=== PATIENT | male | born 1955 | race Caucasian/White ===

== ENCOUNTER 2023-06-21 11:46 | Observation (INO) | payer MEDICARE, SELFPAY ==
[2023-06-21] VITALS (10 sets, daily range): BP systolic 91–176; BP diastolic 75–95; PULSE 59–72; RESP 15–21; TEMP 36.4–36.8; O2SAT 94–95
--- NOTE | 2023-06-21 12:06 | ED_ITS ---
HPI - Animal Bite General: Chief Complaint: Animal Bite Stated Complaint: copperhead bite Time Seen by Provider: 06/21/23 11:47 Source: patient Mode of arrival: ambulatory History of Present Illness: 68-year-old male brought in by EMS for copperhead bite to his l right index finger approximately 2 hours prior to arrival. He has localized swelling. No difficulty breathing no lightheadedness dizziness rapid heart rate or shortness of breath. He is on Coumadin for remote history of PE. Bitten a single time. He does have localized swelling extending from the site of the envenomation in the right index finger to the distal forearm. They did euthanize his neck at the site and confirmed it was a copperhead. MD complaint: animal bite Animal: snake Mechanism: bite Associated symptoms: Deny bleeding, chills, cough, diaphoresis, erythema, fever(s), headache(s), numbness, rash, short of breath, syncope, weakness or wound drainage Review of Systems Const: Denies: fever(s), chills, fatigue, malaise or diaphoresis ENMT: Denies: throat pain, ear or mastoid pain, nasal discharge or nasal congestion Card: Denies: syncope Resp: Denies: dyspnea, productive cough or non-productive cough GI: Denies: abdominal pain, nausea, vomiting, hematemesis, coffee ground emesis, diarrhea, constipation, bloating, hematochezia or melena : Denies: flank pain, dysuria, urinary frequency or urinary urgency Skin/Breast: Denies: rash or pruritus Neuro: Denies: headache(s) PFS ED PFSH: Medical History (Updated 06/21/23 @ 12:30 by Boom Hall DO) Pulmonary embolism Physical Exam Const: GENERAL APPEARANCE: cooperative and comfortable ORIENTATION/CONSCIOUSNESS: Yes awake, Yes oriented to person, Yes oriented to place and Yes oriented to time HENMT: COMMON NORMALS: normocephalic, atraumatic and hearing grossly normal bilaterally HEAD & SCALP: normocephalic and atraumatic Resp: COMMON NORMALS: normal respiratory effort, No retractions, No use of accessory muscles and clear to auscultation bilaterally AUSCULTATION: clear to auscultation bilaterally Cardio: COMMON NORMALS: regular rate, regular rhythm and No murmurs present (Cardio) RATE: regular rate RHYTHM: regular rhythm GI: COMMON NORMALS: Soft to palpation and No hepatosplenomegaly present AUSCULTATION: Yes normoactive bowel sounds PALPATION: Yes Soft to palpation, No Tenderness to palpation present (GI), No Guarding due to palpation present (GI) and Yes No hepatosplenomegaly present Extremity: OTHER: Localized swelling on the right forearm there are puncture wounds at the lateral dorsal aspect of the left index finger local lysed swelling is marked and timed. Neuro: SENSORIUM/ORIENTATION: Yes oriented to person, Yes oriented to place and Yes oriented to time Skin: COMMON NORMALS: no rashes or lesions noted GENERAL SKIN EXAM: no rashes or lesions noted and no erythema Course Vital Signs: Vital signs: Vital Signs Temperature 98.2 F 06/21/23 11:52 Pulse Rate 71 06/21/23 11:52 Respiratory Rate 18 06/21/23 11:52 Blood Pressure 176/95 06/21/23 11:52 Pulse Oximetry 95 06/21/23 11:52 Oxygen Delivery Me thod Room Air 06/21/23 11:52 MDM - Animal Bite Medical Decision Making No systemic effects at this time. Localized swelling with mild discomfort. Discussed with poison control they recommend observation for 12 to 18 hours elevation of the limb baseline CBC CMP CPK and PTT and fibrinogen level. They are going to contact their veterinary pharmacologist as to how the warfarin usage may play a role in what adjustments and monitoring might need to be taken. They did state if the baseline labs and the first repeat labs are both unremarkable patient would not need further lab work. At this time do not recommend antivenom. Medical Records I reviewed the patient's medical records. Lab Data I reviewed the patient's lab results. 06/21/23 11:59 06/21/23 11:59 Laboratory Results WBC 9.0 10^3/uL (4.0-10.0) 06/21/23 11:59 RBC 4.75 10^6/uL (4.1-5.3) 06/21/23 11:59 Hgb 16.5 g/dL (11.7-16.6) 06/21/23 11:59 Hct 46.3 % (42.0-52.0) 06/21/23 11:59 MCV 97.5 fl (80-94) H 06/21/23 11:59 MCH 34.7 pg (28.0-34.0) H 06/21/23 11:59 MCHC 35.6 g/dL (30.0-36.0) 06/21/23 11:59 RDW 13.9 % (12.1-15.1) 06/21/23 11:59 Plt Count 259 10^3/cmm (130-400) 06/21/23 11:59 MPV 9.0 fL (7.4-10.4) 06/21/23 11:59 Neut % (Auto) 69.7 % 06/21/23 11:59 Lymph % (Auto) 16.6 % 06/21/23 11:59 [place] % (Auto) 9.6 % 06/21/23 11:59 Eos % (Auto) 3.2 % 06/21/23 11:59 Baso % (Auto) 0.7 % 06/21/23 11:59 Neut # (Auto) 6.28 10^3/uL (1.8-7.7) 06/21/23 11:59 Lymph # (Auto) 1.5 10^3/uL (0.8-4.8) 06/21/23 11:59 [place] # (Auto) 0.9 10^3/uL (0.2-0.9) 06/21/23 11:59 Eos # (Auto) 0.3 10^3/uL (0.0-0.8) 06/21/23 11:59 Baso # (Auto) 0.1 10^3/uL (0.0-0.1) 06/21/23 11:59 Nucleated RBC % (auto) 0 % 06/21/23 11:59 Nucleated RBCs # 0.0 /100WBC 06/21/23 11:59 PT 32.30 SECONDS (12.1-14.9) H 06/21/23 11:59 INR 3.00 (0.8-1.2) H 06/21/23 11:59 Fibrinogen 340 mg/dL (174-498) 06/21/23 11:59 Sodium 134 mmol/L (136-145) L 06/21/23 11:59 Potassium 4.4 mmol/L (3.5-5.1) 06/21/23 11:59 Chloride 98 mmol/L (98-107) 06/21/23 11:59 Carbon Dioxide 25 mmol/L (22-29) 06/21/23 11:59 Anion Gap 15.4 (5-19) 06/21/23 11:59 BUN 9 mg/dL (8-23) 06/21/23 11:59 Creatinine 0.6 mg/dL (0.7-1.2) L 06/21/23 11:59 GFR Calculation 134.4 mL/min (90-130) H 06/21/23 11:59 Glucose 93 mg/dL (65-115) 06/21/23 11:59 Calculated Osmolality 276 mOsm/kg (285-295) L 06/21/23 11:59 Calcium 8.8 mg/dL (8.5-10.5) 06/21/23 11:59 Total Bilirubin 0.4 mg/dL (0.15-1.2) 06/21/23 11:59 AST 18 U/L (0-40) 06/21/23 11:59 ALT 10 U/L (0-41) 06/21/23 11:59 Alkaline Phosphatase 99 U/L (40-130) 06/21/23 11:59 Creatine Kinase 96 U/L (39-308) 06/21/23 11:59 Total Protein 6.6 g/dL (6.6-8.7) 06/21/23 11:59 Albumin 4.1 g/dL (3.5-5.2) 06/21/23 11:59 Globulin 2.5 g/dL (1.3-4.6) 06/21/23 11:59 Discharge Plan Discharge Patient Disposition: Placed in Observation Clinical Impression: Venomous snake bite Coding Level of Care Code ED Editorial Specialist for Kiran Ireland
[2023-06-21 12:15] LABS: Basophils # 0.1 10^3/uL (0.0-0.1); Basophils % 0.7 %; Eosinophils # 0.3 10^3/uL (0.0-0.8); Eosinophils % 3.2 %; Hematocrit 46.3 % (42.0-52.0); Hemoglobin 16.5 g/dL (11.7-16.6); Lymphocytes # 1.5 10^3/uL (0.8-4.8); Lymphocytes % 16.6 %; Mean Corpuscular HGB Conc 35.6 g/dL (30.0-36.0); Mean Corpuscular Hemoglobin 34.7 pg (28.0-34.0); Mean Corpuscular Volume 97.5 fl (80-94); Monocytes # 0.9 10^3/uL (0.2-0.9); Monocytes % 9.6 %; Neutrophils # 6.28 10^3/uL (1.8-7.7); Neutrophils % 69.7 %; Nucleated Red Blood Cells % 0 %; Platelet Count 259 10^3/cmm (130-400); Red Blood Count 4.75 10^6/uL (4.1-5.3); Red Cell Distribution Width 13.9 % (12.1-15.1)
[2023-06-21 12:27] LABS: Fibrinogen 340 mg/dL (174-498)
[2023-06-21 12:32] LABS: Alanine Aminotransferase 10 U/L (0-41); Albumin Level 4.1 g/dL (3.5-5.2); Alkaline Phosphatase 99 U/L (40-130); Aspartate Amino Transferase 18 U/L (0-40); Blood Urea Nitrogen 9 mg/dL (8-23); Calcium 8.8 mg/dL (8.5-10.5); Carbon Dioxide 25 mmol/L (22-29); Chloride 98 mmol/L (98-107); Creatine Phosphokinase 96 U/L (39-308); Globulin 2.5 g/dL (1.3-4.6); Glomerular Filtration Rate 134.4 mL/min (90-130); Glucose 93 mg/dL (65-115); Osmolality Calculated 276 mOsm/kg (285-295); Sodium 134 mmol/L (136-145); Total Bilirubin 0.4 mg/dL (0.15-1.2); Total Protein 6.6 g/dL (6.6-8.7)
[2023-06-21 12:33] LABS: Anion Gap 15.4 (5-19); Potassium 4.4 mmol/L (3.5-5.1)
--- NOTE | 2023-06-21 13:48 | P.HP_ITS ---
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 No spontaneous bleeding, he has not taken his Coumadin today, no chest pain, shortness of breath, no lightheadedness, I advised patient that I am not a scarfing machine operator, I have limited experience in copperhead snake bites, I will see what scarfing machine operator recommendation is, however if patient develops complications, I would probably consult toxicology, recommend antivenom, and I would recommend transfer to tertiary center. Patient is at risk of blood dyscrasias, at risk of compartment syndrome, as he is on Coumadin, toxicology had recommended for patient to be monitored he has no complaints, except low back pain which he has chronically, he also tells me that has been losing weight, he is lost about 30 pounds in the 8 years, as he quit drinking, he is lost about 10 pounds in the last year, he does smoke cigarettes, denies any hemoptysis, no calf pain, no calf swelling. He does report a family history of blood clots in his brother, he is never seen a dirt bike racer. Medications/Allergies Home Medications Medication Instructions Recorded Confirmed Last Taken Type amlodipine 5 mg tablet 5 mg PO DAILY 06/21/23 06/21/23 06/20/23 History clonidine HCl 0.2 mg tablet 0.2 mg PO BID PRN Blood Pressure 06/21/23 06/21/23 Unknown History ibuprofen 200 mg capsule 800 mg PO Q6H PRN Pain 06/21/23 06/21/23 Unknown History metoprolol tartrate 50 mg tablet 50 mg PO BID 06/21/23 06/21/23 06/21/23 History warfarin 10 mg tablet See Rx Instructions .Route .COMPLEX 0806/21/23 06/20/23 History warfarin 7.5 mg tablet See Rx Instructions .Route .COMPLEX 06/21/23 06/21/23 06/19/23 History Allergies Allergy/AdvReac Type Severity Reaction Status Date / Time No Known Allergies Allergy Verified 06/21/23 12:22 PFSH Acute PFSH: Medical History (Updated 06/21/23 @ 12:30 by Boom Hall DO) Pulmonary embolism Surgical History (Updated 06/21/23 @ 13:56 by Hira Ayon MD) History of back surgery Family History (Updated 06/21/23 @ 13:57 by Hira Ayon MD) Brother DVT (deep venous thrombosis) Social History (Updated 06/21/23 @ 13:57 by Hira Ayon MD) Smoking and tobacco status: current every day smoker Alcohol intake: former Substance/Drug Use: never Vitals/I&O/Wt Last Vital Signs Temp 98.2 F 06/21/23 11:52 Pulse 70 06/21/23 12:46 Resp 21 H 06/21/23 12:46 BP 91/75 06/21/23 12:46 Pulse Ox 95 06/21/23 12:46 O2 Del Method Room Air 06/21/23 12:46 Physical Exam Const: COMMON NORMALS: no acute distress and patient oriented x3 GENERAL APPEARANCE: cooperative, well kempt and well developed HENMT: COMMON NORMALS: normocephalic and oropharynx normal HEAD & SCALP: normocephalic FACE & SINUS: normal facial exam NOSE: Normal external nose present Eye: COMMON NORMALS: Equal, round and reactive pupils present, EOMs intact bilaterally, conjunctivae normal and no scleral icterus CONJUNCTIVA: Yes conjunctivae normal Neck/C-Spine: COMMON NORMALS: no lymphadenopathy, no JVD and No carotid bruits THYROID: Thyroid normal Chest: COMMONS NORMALS: normal inspection of the chest Resp: COMMON NORMALS: normal respiratory effort, No retractions, No use of accessory muscles and clear to auscultation bilaterally AUSCULTATION: clear to auscultation bilaterally GI: COMMON NORMALS: Normal to inspection, nondistended, normoactive bowel sounds present, Soft to palpation and non-tender PALPATION: Yes Soft to palpation and Yes No hepatosplenomegaly present : BLADDER/KIDNEY EXAM: Yes no CVA tenderness Back/Pelvis: COMMON NORMALS: no CVA tenderness Extremity: COMMON NORMALS: normal to inspection, no calf tenderness and no [place] edema Neuro: COMMON NORMALS: patient oriented x3, CN's II-XII intact bilaterally, moves all extremities, no focal motor deficits and no sensory deficits noted Psych: COMMON NORMALS: mental status grossly normal, Normal thought process present, cooperative and speech normal APPEARANCE: Yes well kempt SPEECH: Yes normal speech THOUGHT PROCESS: Normal thought process present Skin: COMMON NORMALS: turgor normal and no jaundice NARRATIVE SKIN EXAM: Copperhead snake bite, right index finger, has localized swelling of right index finger, dorsal aspect of right hand, area has been marked, radial pulse present, ulnar paralysis present GENERAL SKIN EXAM: turgor normal Data 06/21/23 11:59 06/21/23 11:59 A&P Assessment and plan (1) Venomous snake bite: (2) Pulmonary embolism: Plan Copperhead snake bite -Monitor CBC, INR, fibrinogen, CPK -Monitor telemetry -Monitor for worsening swelling, monitor for pain, monitor for bleeding -Monitor for bleeding, monitor for compartment syndrome -Cad Application Support Specialist aware -Question is when to resume anticoagulation INR 3.0, prior dose was 3.4 according to patient, dose of Coumadin has recently been decreased, will hold off on today's dose of Coumadin, will have to make a decision when to resume his Coumadin -Remote history of DVT and PE, over 15 years ago he is never seen a dirt bike racer, etiology unclear, will likely need to see hematology oncology on discharge for work-up for hereditary hypercoagulability's, -Patient was advised to quit smoking -Does have weight loss will do a chest x-ray -Patient was advised to avoid ibuprofen use especially is he is on Coumadin Attestations Medical Necessity Statement*: Patient requires hospitalization, outpatient with observation, for copperhead snake bite Diagnoses Venomous snake bite T63.004A Pulmonary embolism I26.99
--- NOTE | 2023-06-21 14:10 | XR_ITS ---
WS: [id number] Portable AP upright chest, 06/21/2023 Clinical Data: weight loss, smoker Comparison: Two-view chest, 04/20/2012. Findings: No nodules, masses or effusions are seen. The heart is normal. The pulmonary vascularity is not increased. No pneumonia or pneumothorax is seen. The aortic arch and descending thoracic aorta s how mild tortuosity. The diaphragms are flattened. There are monitor leads on the chest wall. There i s sclerosis, narrowing and erosion of the left shoulder joint. Impression: Atherosclerosis and hyperinflation.
[2023-06-21] MEDS: sodium chloride 0.9% 1,000 ML 75 ML IV (14:19)
[2023-06-21 14:42] LABS: Lactic Sepsis W/Reflex 1.4 mmol/L (0.5-2.2)
[2023-06-21 14:49] LABS: Estmated Average Glucose 111; Hemoglobin A1C 5.5 % (4.0-6.0)
[2023-06-21 15:03] LABS: Procalcitonin 0.07 ng/mL (0-0.5); Thyroid Stimulating Hormone 2.35 uIU/mL (0.27-4.20)
[2023-06-21 15:14] LABS: Chol HDL Ratio 3.79 mg/dL (1.0-5.00); Cholesterol 178 mg/dL (0-200); HDL Cholesterol 47 mg/dL (60-100); LDL Cholesterol Calculated 114 mg/dL (50-129); LDL HDL Ratio 2.43 RATIO (0.00-3.22); Triglycerides 83 mg/dL (0-150)
[2023-06-21 15:37] LABS: Add Urine Microscopic? NO; Charge for UA Resulting for Rev
[2023-06-21 15:56] LABS: Bilirubin Urine Neg (Negative); Blood Urine Neg (Negative); Glucose Urine UA Norm (Normal); Ketones Urine 1+ (Negative); Leukocyte Esterase Urine Negative (Negative); Nitrate Urine Negative (Negative); Protein Urine Neg (Negative); Specific Gravity, Urine 1.005 (1.005-1.030); Urine Appearance Clear (CLEAR); Urine Color Yellow (Yellow); Urobilinogen Urine Norm (Negative); pH Urine 6 (5-7)
[2023-06-21 17:39] LABS: Basophils % 0.2 %; Eosinophils # 0.2 10^3/uL (0.0-0.8); Eosinophils % 2.2 %; Hematocrit 46.7 % (42.0-52.0); Hemoglobin 16.3 g/dL (11.7-16.6); Lymphocytes # 1.8 10^3/uL (0.8-4.8); Lymphocytes % 16.1 %; Mean Corpuscular HGB Conc 34.9 g/dL (30.0-36.0); Mean Corpuscular Hemoglobin 34.3 pg (28.0-34.0); Mean Corpuscular Volume 98.3 fl (80-94); Mean Platelet Volume 8.8 fL (7.4-10.4); Monocytes # 0.9 10^3/uL (0.2-0.9); Monocytes % 8.7 %; Neutrophils # 7.85 10^3/uL (1.8-7.7); Neutrophils % 72.3 %; Nucleated Red Blood Cells % 0 %; Platelet Count 246 10^3/cmm (130-400); Red Blood Count 4.75 10^6/uL (4.1-5.3); Red Cell Distribution Width 13.9 % (12.1-15.1); White Blood Count 10.9 10^3/uL (4.0-10.0)
[2023-06-21] MEDS: metoprolol tartrate 50 mg Tablet PO (17:45)
[2023-06-21 18:04] LABS: Creatine Phosphokinase 80 U/L (39-308)
[2023-06-21 18:07] LABS: Fibrinogen 315 mg/dL (174-498); INR 2.81 (0.8-1.2)
[2023-06-22] VITALS: BP 129/77; PULSE 67; RESP 15; TEMP 36.5; O2SAT 95
[2023-06-22] MEDS: tetanus-diphtheria tox (adult) 0.5 mL SDV IM (01:38)
--- NOTE | 2023-06-22 01:43 | PC.NURSE ---
verbal consent from patient for tetanus shot
[2023-06-22 03:03] VITALS: BP 129/73; PULSE 56; RESP 15; TEMP 36.4; O2SAT 92
[2023-06-22] MEDS: sodium chloride 0.9% 1,000 ML 75 ML IV (03:11)
[2023-06-22 05:31] VITALS: PULSE 79
[2023-06-22 05:41] LABS: Basophils % 0.2 %; Eosinophils # 0.2 10^3/uL (0.0-0.8); Eosinophils % 2.6 %; Hematocrit 45.1 % (42.0-52.0); Hemoglobin 15.6 g/dL (11.7-16.6); Lymphocytes # 1.4 10^3/uL (0.8-4.8); Lymphocytes % 16.8 %; Mean Corpuscular HGB Conc 34.6 g/dL (30.0-36.0); Mean Corpuscular Hemoglobin 34.7 pg (28.0-34.0); Mean Corpuscular Volume 100.4 fl (80-94); Mean Platelet Volume 9.1 fL (7.4-10.4); Monocytes # 0.9 10^3/uL (0.2-0.9); Monocytes % 10.6 %; Neutrophils # 5.58 10^3/uL (1.8-7.7); Neutrophils % 69.3 %; Nucleated Red Blood Cells % 0 %; Platelet Count 232 10^3/cmm (130-400); Red Blood Count 4.49 10^6/uL (4.1-5.3); Red Cell Distribution Width 14.3 % (12.1-15.1); White Blood Count 8.1 10^3/uL (4.0-10.0)
[2023-06-22 05:58] LABS: INR 2.83 (0.8-1.2)
[2023-06-22 05:59] LABS: Fibrinogen 322 mg/dL (174-498)
[2023-06-22 06:00] LABS: Alanine Aminotransferase 7 U/L (0-41); Albumin Level 3.5 g/dL (3.5-5.2); Alkaline Phosphatase 82 U/L (40-130); Aspartate Amino Transferase 15 U/L (0-40); Blood Urea Nitrogen 11 mg/dL (8-23); Calcium 8.3 mg/dL (8.5-10.5); Carbon Dioxide 24 mmol/L (22-29); Chloride 102 mmol/L (98-107); Globulin 2.1 g/dL (1.3-4.6); Glomerular Filtration Rate 165.9 mL/min (90-130); Glucose 81 mg/dL (65-115); Osmolality Calculated 278 mOsm/kg (285-295); Sodium 135 mmol/L (136-145); Total Bilirubin 0.4 mg/dL (0.15-1.2); Total Protein 5.6 g/dL (6.6-8.7)
[2023-06-22 06:07] LABS: Creatine Phosphokinase 78 U/L (39-308)
[2023-06-22 07:12] VITALS: BP 134/95; PULSE 80; RESP 16; TEMP 36.6; O2SAT 93
[2023-06-22] MEDS: metoprolol tartrate 50 mg Tablet PO (07:47)
[2023-06-22] MEDS: amlodipine 5 mg Tablet PO (07:47)
[2023-06-22 07:49] VITALS: BP 134/95; PULSE 80; RESP 16; TEMP 36.6
--- NOTE | 2023-06-22 10:53 | P.DS_ITS ---
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 No spontaneous bleeding, he has not taken his Coumadin today, no chest pain, shortness of breath, no lightheadedness, I advised patient that I am not a industrial truck mechanic, I have limited experience in copperhead snake bites, I will see what industrial truck mechanic recommendation is, however if patient develops complications, I would probably consult toxicology, recommend antivenom, and I would recommend transfer to tertiary center.? Patient is at risk of blood dyscrasias, at risk of compartment syndrome, as he is on Coumadin, toxicology had recommended for patient to be monitored he has no complaints, except low back pain which he has chronically, he also tells me that has been losing weight, he is lost about 30 pounds in the 8 years, as he quit drinking, he is lost about 10 pounds in the last year, he does smoke cigarettes, denies any hemoptysis, no calf pain, no calf swelling.? He does report a family history of blood clots in his brother, he is never seen a galvanizing pot runner. Patient was monitored as inpatient, no significant bleeding, no significant pain, area of erythema and swelling has not gone beyond the level of the elbow, no fevers, hemoglobin 15.6, platelet count 232, INR 2.83, fibrinogen 322. Patient will be discharged home with instructions to keep right arm elevated, has been given a tetanus shot, the swelling will likely worsen in the next 24 hours but monitor continue at elevated, if he has sudden onset bleeding, sudden onset pain, sudden onset tightness of his right arm this could be an indicator of possible compartment syndrome and should immediately go to emergency room. If he has any significant bleeding, lightheadedness or dizziness this could be an indicator of significant life-threatening blood dyscrasia please go to emergency room. In terms of his Coumadin, he is dose yesterday was held, his dose today will be held, resume his Coumadin on Saturday at 10 mg, recheck his hemoglobin and INR on Saturday through his primary care provider's office. Patient was advised strongly to quit smoking, I spent a great deal of time discussing with him about smoking cessation. Over the last few years, he does complain of weight loss with his smoking history and refer him to Dr. Preston. He does have a history of DVT and PE, with a family history of DVT PE and no further work-up, is on Coumadin, follow-up with hematology oncology for work-up for hypercoagulability disorders, potential switch over to Eliquis or Xarelto Physical Exam Const: COMMON NORMALS: no acute distress and patient oriented x3 Neck/C-Spine: COMMON NORMALS: no JVD Resp: COMMON NORMALS: normal respiratory effort, No retractions, No use of accessory muscles and clear to auscultation bilaterally AUSCULTATION: clear to auscultation bilaterally Cardio: COMMON NORMALS: no JVD, regular rate, regular rhythm, S1 normal heart sound present and S2 normal heart sound present RATE: regular rate RHYTHM: regular rhythm HEART SOUNDS: S1 normal heart sound present and S2 normal heart sound present GI: COMMON NORMALS: Normal to inspection, nondistended, normoactive bowel sounds present and non-tender Extremity: COMMON NORMALS: no pedal edema Neuro: COMMON NORMALS: patient oriented x3 Psych: COMMON NORMALS: mental status grossly normal Skin: NARRATIVE SKIN EXAM: Right arm, radial pulse present, ulnar pulse present, good capillary refill, good range of motion of fingers, does have swelling in the dorsal aspect of right hand, extending down the arm with erythema, up to the level of the elbow, area marked but improved compared to yesterday, area of erythema, swelling, has improved Discharge Data Studies Completed and Pending Completed Studies During Hospitalization Category Date Time Status XR chest 1V portable [id number] Routine Exams 06/21/23 14:10 Completed Pending at discharge Category Date Time Status Complete Blood Count w/Auto AM LABS Lab 06/23/23 04:00 Ordered Complete Blood Count w/Auto AM LABS Lab 06/24/23 04:00 Ordered Comprehensive Metabolic Panel AM LABS Lab 06/23/23 04:00 Ordered Comprehensive Metabolic Panel AM LABS Lab 06/24/23 04:00 Ordered Creatine Phosphokinase AM LABS Lab 06/23/23 04:00 Ordered Creatine Phosphokinase AM LABS Lab 06/24/23 04:00 Ordered Fibrinogen AM LABS Lab 06/23/23 04:00 Ordered Fibrinogen AM LABS Lab 06/24/23 04:00 Ordered Prothrombin Time INR AM LABS Lab 06/23/23 04:00 Ordered Prothrombin Time INR AM LABS Lab 06/24/23 04:00 Ordered Laboratory Results WBC 8.1 10^3/uL (4.0-10.0) 06/22/23 05:07 RBC 4.49 10^6/uL (4.1-5.3) 06/22/23 05:07 Hgb 15.6 g/dL (11.7-16.6) 06/22/23 05:07 Hct 45.1 % (42.0-52.0) 06/22/23 05:07 MCV 100.4 fl (80-94) H 06/22/23 05:07 MCH 34.7 pg (28.0-34.0) H 06/22/23 05:07 MCHC 34.6 g/dL (30.0-36.0) 06/22/23 05:07 RDW 14.3 % (12.1-15.1) 06/22/23 05:07 Plt Count 232 10^3/cmm (130-400) 06/22/23 05:07 MPV 9.1 fL (7.4-10.4) 06/22/23 05:07 Neut % (Auto) 69.3 % 06/22/23 05:07 Lymph % (Auto) 16.8 % 06/22/23 05:07 [place] % (Auto) 10.6 % 06/22/23 05:07 Eos % (Auto) 2.6 % 06/22/23 05:07 Baso % (Auto) 0.2 % 06/22/23 05:07 Neut # (Auto) 5.58 10^3/uL (1.8-7.7) 06/22/23 05:07 Lymph # (Auto) 1.4 10^3/uL (0.8-4.8) 06/22/23 05:07 [place] # (Auto) 0.9 10^3/uL (0.2-0.9) 06/22/23 05:07 Eos # (Auto) 0.2 10^3/uL (0.0-0.8) 06/22/23 05:07 Baso # (Auto) 0.0 10^3/uL (0.0-0.1) 06/22/23 05:07 Nucleated RBC % (auto) 0 % 06/22/23 05:07 Nucleated RBCs # 0.0 /100WBC 06/22/23 05:07 PT 30.80 SECONDS (12.1-14.9) H 06/22/23 05:07 INR 2.83 (0.8-1.2) H 06/22/23 05:07 Fibrinogen 322 mg/dL (174-498) 06/22/23 05:07 Sodium 135 mmol/L (136-145) L 06/22/23 05:07 Potassium 4.0 mmol/L (3.5-5.1) 06/22/23 05:07 Chloride 102 mmol/L (98-107) 06/22/23 05:07 Carbon Dioxide 24 mmol/L (22-29) 06/22/23 05:07 Anion Gap 13.0 (5-19) 06/22/23 05:07 BUN 11 mg/dL (8-23) 06/22/23 05:07 Creatinine 0.5 mg/dL (0.7-1.2) L 06/22/23 05:07 GFR Calculation 165.9 mL/min (90-130) H 06/22/23 05:07 Glucose 81 mg/dL (65-115) 06/22/23 05:07 Estimat Average Glucose 111 06/21/23 11:59 Hemoglobin A1c 5.5 % (4.0-6.0) 06/21/23 11:59 Calculated Osmolality 278 mOsm/kg (285-295) L 06/22/23 05:07 Lactic Acid 1.4 mmol/L (0.5-2.2) 06/21/23 11:59 Calcium 8.3 mg/dL (8.5-10.5) L 06/22/23 05:07 Total Bilirubin 0.4 mg/dL (0.15-1.2) 06/22/23 05:07 AST 15 U/L (0-40) 06/22/23 05:07 ALT 7 U/L (0-41) 06/22/23 05:07 Alkaline Phosphatase 82 U/L (40-130) 06/22/23 05:07 Creatine Kinase 78 U/L (39-308) 06/22/23 05:07 C-Reactive Protein 3.0 mg/L (0.0-4.9) 06/21/23 11:59 Total Protein 5.6 g/dL (6.6-8.7) L 06/22/23 05:07 Albumin 3.5 g/dL (3.5-5.2) 06/22/23 05:07 Globulin 2.1 g/dL (1.3-4.6) 06/22/23 05:07 Triglycerides 83 mg/dL (0-150) 06/21/23 11:59 Cholesterol 178 mg/dL (0-200) 06/21/23 11:59 LDL Cholesterol, Calc 114 mg/dL (50-129) 06/21/23 11:59 HDL Cholesterol 47 mg/dL (60-100) L 06/21/23 11:59 LDL/HDL Ratio 2.43 RATIO (0.00-3.22) 06/21/23 11:59 Cholesterol/HDL Ratio 3.79 mg/dL (1.0-5.00) 06/21/23 11:59 Procalcitonin 0.07 ng/mL (0-0.5) 06/21/23 11:59 TSH 2.35 uIU/mL (0.27-4.20) 06/21/23 11:59 Urine Color Yellow (Yellow) 06/21/23 15:30 Urine Appearance Clear (CLEAR) 06/21/23 15:30 Urine pH 6 (5-7) 06/21/23 15:30 Ur Specific [place] 1.005 (1.005-1.030) 06/21/23 15:30 Urine Protein Neg (Negative) 06/21/23 15:30 Urine Glucose (UA) Norm (Normal) 06/21/23 15:30 Urine Ketones 1+ (Negative) H 06/21/23 15:30 Urine Blood Neg (Negative) 06/21/23 15:30 Urine Nitrate Negative (Negative) 06/21/23 15:30 Urine Bilirubin Neg (Negative) 06/21/23 15:30 Urine Urobilinogen Norm mg/dL (Negative) 06/21/23 15:30 Ur Leukocyte Esterase Negative (Negative) 06/21/23 15:30 Vitals Last Vital Signs Temp 97.8 F 06/22/23 07:49 Pulse 80 06/22/23 07:49 Resp 16 06/22/23 07:49 BP 134/95 06/22/23 07:49 Pulse Ox 93 06/22/23 07:12 O2 Del Method Room Air 06/22/23 03:03 Discharge Plan Discharge Condition: Stable Prescriptions: New hydrocodone-acetaminophen 5-325 mg Tablet 1 tab PO Q12H PRN (Reason: Moderate To Severe Pain) 7 Days Qty: 14 0RF Continued amlodipine 5 mg tablet 5 mg PO DAILY clonidine HCl 0.2 mg tablet 0.2 mg PO BID PRN (Reason: Blood Pressure) metoprolol tartrate 50 mg tablet 50 mg PO BID Held warfarin 10 mg tablet See Rx Instructions .ROUTE .COMPLEX Hold Instructions: Resume on 06/24/23. Rx Instructions: 10 mg orally on Saturday, Saturday, , and Saturday warfarin 7.5 mg tablet See Rx Instructions .ROUTE .COMPLEX Hold Instructions: Resume on 06/23/23. Rx Instructions: 7.5 mg orally on Saturday, Saturday and Saturday Discontinued ibuprofen 200 mg Capsule 800 mg PO Q6H PRN (Reason: Pain) Discharge Orders: Discharge Order (Routine); Ordered 06/22/23 Ordered By: Hira Ayon Referrals: YuniorrTrever MD [Physician] - 1-3 days Maycol Menjivar MD [Hospitalist] - 2 weeks Jelly Infante NP [Primary Care Provider] - Discharge Diet: Cardiac Discharge Activity: Resume usual activity Patient Instructions: Snake Bite (DC), Opioid Safety Activity Restrictions/Additional Instructions: - Keep right arm elevated, your swelling will likely worsen the next 24 hours, -If your swelling extends beyond the elbow or your right arm becomes tight, or you have severe pain please go to the emergency room as this could be an indicator of a life-threatening condition -Please hold Coumadin for today, resume tomorrow at 10 mg once daily -Please have your primary care provider recheck your INR on Saturday -Please see your primary care provider on Saturday Discharge Attestations Time Spent in Discharge Care*: greater than 30 min Quality Metrics Clinical Quality Measures [ No reported AMI, CVA or VTE this stay] Coding Level of Care Code 68427 Total time (in minutes) for Discharge: 45 Diagnoses Venomous snake bite T63.004A Pulmonary embolism I26.99
[2023-06-22 11:32] VITALS: BP 134/95; PULSE 80; RESP 16; TEMP 36.6
== END 2023-06-22 12:00 | disposition home or self-care (01) ==
LOC: ER 12:30 → MEDSURG 13:40
PROVIDERS: Admitting Provider Family Medicine; Emergency Provider Family Medicine; PCP Nurse Practitioner Family; Visit Provider Family Medicine
DX: T63.091A Toxic effect of venom of other snake, accidental (unintentional), initial encounter (principal); S61.250A Open bite of right index finger without damage to nail, initial encounter; I10 Essential (primary) hypertension; Z23 Encounter for immunization; F17.200 Nicotine dependence, unspecified, uncomplicated; Z79.01 Long term (current) use of anticoagulants; Z86.711 Personal history of pulmonary embolism; Z86.718 Personal history of other venous thrombosis and embolism; X58.XXXA Exposure to other specified factors, initial encounter
CPT/HCPCS: 36415; 71045; 80053; 80061; 81003; 82550; 83036; 83605; 84145; 84443; 85025; 85384; 85610; 86140; 90471; 90714; 94664; 96360; 96361; 99285; G0378; J7030